=== PATIENT | male | born 1975 | race Two or more races ===

== ENCOUNTER → 2016-06-09 | Outpatient (CLI) | payer OTHER ==
--- NOTE | 2016-06-09 16:22 | RAD ---
Indication chronic pain associated with the great toe. An AP view of the left foot was obtained as well as oblique and lateral imaging targeted to the great toe. There are some mild degenerative changes at the first metatarsal phalangeal joint. No additional bony finding is seen
== END | disposition home or self-care (01) ==
LOC: DXRADRC 15:02
PROVIDERS: ATTEND Physician Assistant Medical
DX: M19.072 Primary osteoarthritis, left ankle and foot (principal); G89.29 Other chronic pain
CPT/HCPCS: 73660

== ENCOUNTER → 2020-03-13 | Outpatient (CLI) | payer OTHER ==
--- NOTE | 2020-03-13 17:15 | RAD ---
INDICATION: Right shoulder lump COMPARISON: None. FINDINGS: Focused ultrasound images are obtained of the soft tissues surrounding the right shoulder. Echogenic lesion is seen within the subcutaneous fat measuring 34 x 32 x 9 mm. Small amount of vascul ar flow is seen within. 36 x 23 x 6 mm similar-appearing echogenic masses seen without definite vascular flow. IMPRESSION: * Echogenic masses in the subcutaneous soft tissues at the right shoulder. Most common cause would be lipoma but one of these does have some internal vascularity within and nonspecific appearance on u ltrasound. If additional follow-up is desired CT or MRI could confirm that this is fat-containing and assess for a higher grade solid component. Alternatively follow-up ultrasound could BE obtained to e nsure no growth Electronically signed by: Cisco Coronado MD (03/13/2020 5:13 PM) [id number]
== END ==
LOC: US 14:33
PROVIDERS: ATTEND Nurse Practitioner Family
DX: D17.21 Benign lipomatous neoplasm of skin and subcutaneous tissue of right arm (principal)
CPT/HCPCS: 76881